=== PATIENT | male | born 1960 | race Caucasian/White ===

== ENCOUNTER 2020-01-19 07:06 | Day surgery (SDC) | payer BC ==
[2020-01-18 10:14] LABS: HEMATOCRIT 44.3 % (42.0-52.0); MEAN CELL VOLUME 93 fl (80.0-100.0); MEAN CORPUSCULAR HEMOGLOBIN 32 pg (27.0-31.0); MEAN CORPUSCULAR HGB CONC 34 g/dl (33.0-37.0); MEAN PLATELET VOLUME 9.7 fl (7.4-10.4); PLATELET COUNT 286 K/mm3 (130-400); RED BLOOD COUNT 4.76 M/mm3 (4.20-5.60)
[2020-01-18 10:22] LABS: CALCIUM 9.2 mg/dL (8.4-10.2); CREATININE, serum 1.14 (0.66-1.25); POTASSIUM 4.1 mmol/L (3.4-5.0)
[2020-01-19] VITALS (25 sets, daily range): BP systolic 107–161; BP diastolic 63–98; PULSE 59–91; TEMP 97.2–97.6
[~2020-01-19] VITALS: Ht 160 cm; Wt 83.2 kg
[2020-01-19] MEDS ORDERED: CHOLESTEROL (07:22)
--- NOTE | 2020-01-19 09:15 | NUR ---
PT WAS TAKEN TO [facility] PER DR NEAL'S ORDER. DR NEAL WAS UNABLE TO PLACE THE GUIDEWIRE. REPORT TO TENZIN. DR NEAL DID ATTEMPT TO CALL DR RINCON DURING AND AFTER THE PROCEDURE.
--- NOTE | 2020-01-19 09:15 | NUR ---
Patient received from radiology per cart and is awake and alert. Denies pain or nausea. Unsuccessful attempt to place guidewire. Dr. Monson notified and he will talk with Dr. Ta. Son with the patient and translates.
[2020-01-19] MEDS ORDERED: LIPITOR20 MG PO (10:20)
--- NOTE | 2020-01-19 11:09 | NUR ---
Dr. Busch here to talk with the patient and son. All questions answered.
--- NOTE | 2020-01-19 11:15 | NUR ---
Consent signed by son due to patient having sedation in radiology.
--- NOTE | 2020-01-19 14:05 | NUR ---
Patient returns to room 5 per cart from PACU accompanied by Erlinda BOATENG and is awake and alert. Temp 97.6 and sats 95% on 2L per nasal cannula. IV fluids infusing.
--- NOTE | 2020-01-19 14:20 | NUR ---
Continues to rest with eyes closed when not disturbed. Son in room. Siderails up x2 and call light in reach. IV fluids infusing.
--- NOTE | 2020-01-19 14:35 | NUR ---
Room air sats 93%. Taking sips of water.
[2020-01-19] MEDS ORDERED: PYRIDIUM 100MG100 MG PO (14:43)
--- NOTE | 2020-01-19 14:50 | NUR ---
IV fluids continue to infuse. Offers no complaints of pain at rest.
--- NOTE | 2020-01-19 15:05 | NUR ---
Awake and talking with son. Drinking water.
--- NOTE | 2020-01-19 15:10 | NUR ---
Stands at bedside and complains of being dizzy. Dribbles blood only and returns to bed. Eating toast and drinking juice.
--- NOTE | 2020-01-19 15:20 | NUR ---
Assisted up to the bathroom and is able to void and returns to the room. Bladder scan done prior to voiding with 349 noted. Urine blood tinged. Returns to room and IV discontinued. Assisted patient with dressing.
--- NOTE | 2020-01-19 15:35 | NUR ---
Dismissal instructions given and signed. Patient and son verbalize understanding of these. Office will call and schedule follow up. Patient provided script for pyridium and encouraged to take as soon as this is filled.
--- NOTE | 2020-01-19 15:40 | NUR ---
Patient dismissed to home driven by son and taken to the front door per wheelchair and assisted into truck by this RN with instructions in hand.
== END 2020-01-19 15:40 | disposition home or self-care (01) ==
LOC: SDCO 07:06
PROVIDERS: Urology
DX: N13.2 Hydronephrosis with renal and ureteral calculous obstruction (principal); M54.30 Sciatica, unspecified side; G89.29 Other chronic pain; Z20.828 Contact with and (suspected) exposure to other viral communicable diseases; Z79.899 Other long term (current) drug therapy; Z82.49 Family history of ischemic heart disease and other diseases of the circulatory system
CPT/HCPCS: C1769; C1894; C2617; J0690; J1100; J1885; J2250; J2405; J2704; J3010; J7030; Q9967

== ENCOUNTER → 2020-02-10 | Outpatient (CLI) | payer BC ==
[~2020-02-10] MED LIST: CHOLESTEROL; LIPITOR20 MG PO; PYRIDIUM 100MG100 MG PO
== END ==
LOC: ZCOL.LAB 19:17
DX: Z01.818 Encounter for other preprocedural examination (principal); Z20.828 Contact with and (suspected) exposure to other viral communicable diseases